=== PATIENT | male | born 1985 | race Caucasian/White ===

== ENCOUNTER → 2016-06-06 | Outpatient (CLI) | payer OTHER ==
--- NOTE | ~2016-06-06 | CT129 ---
[facility]. [facility] A Service of [facility] RADIOLOGY TEXT RESULTS PATIENT: JOSE J HAAS LOCATION: [facility] : 85 UNIT #: [id number] AGE: [address]: Hernando Cruz MD SEX: M ORDER DR: [id number] [place] [id number] O MR#: [id number] Acc #: [id number] NAME: JOSE J HAAS : 1985 SEX: M STUDY DATE/TIME: 06/06/2016 UNIT: [facility] ROOM: STUDY DESCRIPTION: CT Upper Ext Rt WWo Cont Attending Physician: Hernando Cruz M.D. Referring Physician: Hernando Cruz M.D. Ordering Physician: Hernando Cruz M.D. Primary Care Physician: Vimal Archibald M.D. MEDICAL IMAGING REPORT This report is preliminary unless electronic signature is present. EXAM CT right shoulder with and without IV contrast with coronal and sagittal reconstructions, 06/06/2016 HISTORY Order states right shoulder mass. History sheet states lump on right shoulder for 2 years, it is not painful. Patient's states it is getting larger. 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 Fish oil capsules were used to jose j the area of concern. TECHNIQUE The exam was performed without and subsequently with IV contrast after a 2-minute scan delay after contrast completion. This CT exam was performed with one or more of the following radiation dose reduction techniques: automatic exposure control, adjustment of mA and/or kV according to patient size, and iterative reconstruction. FINDINGS There is a somewhat ill-defined zone of subcutaneous fat prominence in the area of clinical concern marked with a marker. This area measures approximately 4.9 cm x 4.5 cm x 2.1 cm (craniocaudal x AP x transverse). There is no abnormal enhancement or soft tissue nodularity. The appearance is most suggestive of a subcutaneous lipoma. A defined capsule is not visualized but could be occult on CT. There is no axillary adenopathy or abnormal shoulder finding. Visualized thorax is within normal limits. IMPRESSION [facility] A Service of [facility] RADIOLOGY TEXT RESULTS PATIENT: JOSE J HAAS LOCATION: [place] : 85 UNIT #: [id number] AGE: [address]: Hernando Cruz MD SEX: M ORDER DR: 1. The area of clinical concern marked with a marker is a 4.9 cm x 4.5 cm x 2.1 cm focus of subcutaneous fatty prominence most compatible with a subcutaneous lipoma. There is no abnormal enhancement or obvious soft tissue nodularity. 2. The exam is otherwise normal. Dictated by... Berkley Antoine M.D. THIS IS AN ELECTRONICALLY VERIFIED REPORT Berkley Antoine M.D. at 06/10/2016 10:51 AM GUILLERMO/paola TD: 06/10/2016 01:25 JOB #: [id number] MEDICAL IMAGING REPORT
== END | disposition home or self-care (01) ==
LOC: SCT 16:03
DX: R22.31 Localized swelling, mass and lump, right upper limb (principal)
CPT/HCPCS: 73202; Q9967